=== PATIENT | male | born 1955 | race African-American/Black ===

== ENCOUNTER 2021-03-31 05:47 | Day surgery (SDC) | payer OTHER, BC ==
[2021-03-28 15:23] VITALS: BMI 26.4
[2021-03-31] MEDS ORDERED: BUPIVACAINE HCL/PF 2.5 MG/ML - 30 ML VIAL IJ ONE (07:28)
[2021-03-31] MEDS ORDERED: BUPIVACAINE HCL/PF 0.25% (2.5MG/ML) 10 ML VIAL IJ ONE (08:19)
[2021-03-31] MEDS ORDERED: ONDANSETRON 4 MG/2 ML VIAL IVPUSH PRN (08:30)
[2021-03-31] MEDS ORDERED: oxyCODONE HCL 5 MG TABLET PO PRN (08:30)
[2021-03-31] MEDS ORDERED: LACTATED RINGERS SOLUTION 1,000 ML IV SCH (08:30)
[2021-03-31 10:38] VITALS: BP 150/89; PULSE 78; TEMP 97.7
== END 2021-03-31 10:31 | disposition home or self-care (01) ==
LOC: FASU 05:47
PROVIDERS: ATTEND Orthopaedic Surgery
PROC: 0SBD4ZZ Excision of Left Knee Joint, Percutaneous Endoscopic Approach (ICD-10-PCS; 2021-03-31)
PROC: 0SBD4ZZ Excision of Left Knee Joint, Percutaneous Endoscopic Approach (ICD-10-PCS; principal; 2021-03-31 08:04)
DX: S83.242A Other tear of medial meniscus, current injury, left knee, initial encounter (principal); S83.8X2A Sprain of other specified parts of left knee, initial encounter; M65.862 Other synovitis and tenosynovitis, left lower leg; X58.XXXA Exposure to other specified factors, initial encounter; Y93.9 Activity, unspecified; Y92.9 Unspecified place or not applicable
CPT/HCPCS: 94760